=== PATIENT | female | born 1940 | race Caucasian/White ===

== ENCOUNTER → 2016-03-11 | Outpatient (CLI) | payer OTHER ==
--- NOTE | 2016-03-11 18:11 | DX ---
Left knee, 3 views. HISTORY: Chronic knee pain. FINDINGS: Moderate joint space narrowing is present medially, with less severe features of osteoarthr itis within the lateral and patellofemoral compartments. Chondrocalcinosis is identified along with n onspecific soft tissue calcification posteriorly. No fracture or joint effusion IMPRESSION: 1. Chondrocalcinosis, with tricompartment osteoarthritis, most severe in the medial compartment.
== END ==
LOC: GIMAGING 10:18
PROVIDERS: ATTEND Family Medicine
DX: M11.262 Other chondrocalcinosis, left knee (principal); M17.12 Unilateral primary osteoarthritis, left knee
CPT/HCPCS: 73562-PO

== ENCOUNTER → 2016-03-29 | Outpatient (CLI) | payer OTHER ==
--- NOTE | 2016-03-30 12:34 | MR ---
MRI lower extremity, left knee History: Left knee pain. Evaluate for meniscal tear. ICD-10 code M25.562. Comparison: Radiograph of 11 March 2016 Technique: MRI was performed of the left knee using a 3 [facility] system. Axial, sagittal, and hughes l images were obtained with standard imaging sequences. Findings: General: Moderate suprapatellar joint effusion. There appears to be synovial proliferation and lipoma tosis arborescens. Copeland cyst is present extending craniocaudal 7 cm. There is be a loose body within it measuring 1.1 cm. Ligaments and Tendons: Anterior cruciate ligament is intact and unremarkable. There is mild abnormal signal intensity in the posterior cruciate ligament, which could represent tendinopathy or intrasubst ance partial tear or strain. Medial collateral ligament and pes anserinus are unremarkable. Iliotibia l band is unremarkable. Mild abnormal signal intensity is seen in the proximal fibular collateral lig ament without attenuation. Biceps femoris is unremarkable. There is mild abnormal signal intensity se en in the popliteus tendon. Menisci and Cartilage: Abnormal signal intensity is seen in the anterior horn lateral meniscus extend ing to the inferior articular surface. There is also some sclerosis and truncation and fraying at the free edge of the body. There is an undersurface tear in the posterior horn lateral meniscus near the free edge. Cartilage signal lateral abnormality is seen in the lateral compartment with minimal thin michaelle. There are foci of low signal intensity suggesting underlying chondrocalcinosis. Abnormal signal intensity is seen in the anterior horn and body of the medial meniscus extending to t he inferior articular surface. There is a diminutive appearance to the free edge in the posterior hor n and upper surface tear and irregularity in the posterior horn. Cartilage signal abnormality and thi nning are seen in the medial compartment, most severe in the central weightbearing portion with great er than 50% cartilage loss. Subarticular bone marrow edema is seen in the medial tibial plateau. Ther e is moderate periarticular spurring. Extensor Mechanism: Cartilage signal abnormality and thinning are seen along the median ridge of the patella extending to the medial facet. There is cartilage signal abnormality and thinning in the infe rior trochlear groove and medially. Quadriceps tendon is unremarkable. Mild abnormal signal intensity is seen in the proximal patellar tendon. Impression: 1. Complex degenerative tear medial meniscus. 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 2. Mildly complex degenerative tear lateral meniscus. Grade 1 and early grade 2 articular cartilage d isease in the lateral compartment and associated degenerative change. Probably a component of underly ing chondrocalcinosis. 3. 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 Mild tendinopathy proximal middleton lar tendon. 4. Mild tendinopathy or strain posterior cruciate ligament. 5. Mild tendinopathy or strain proximal fibular collateral ligament and popliteus tendon. 6. Moderate suprapatellar joint effusion with synovial proliferation and lipomatosis arborescens. Nadia er cyst with a loose body..
== END ==
LOC: FIMAGING 12:58
PROVIDERS: ATTEND Orthopaedic Surgery
DX: S83.232A Complex tear of medial meniscus, current injury, left knee, initial encounter (principal); S83.272A Complex tear of lateral meniscus, current injury, left knee, initial encounter; S83.522A Sprain of posterior cruciate ligament of left knee, initial encounter; M22.42 Chondromalacia patellae, left knee; M25.462 Effusion, left knee